=== PATIENT | male | born 1990 | race Caucasian/White ===

== ENCOUNTER 2023-03-29 09:47 | Emergency (ER) | payer BC ==
[~2023-03-29] VITALS: Ht 180.3 cm; Wt 79.4 kg
[2023-03-29 10:03] VITALS: BP 151/84
== END 2023-03-29 11:11 | disposition home or self-care (01) ==
LOC: ER 09:47
DX: T15.92XA Foreign body on external eye, part unspecified, left eye, initial encounter (principal); Z88.1 Allergy status to other antibiotic agents; X58.XXXA Exposure to other specified factors, initial encounter; Y92.89 Other specified places as the place of occurrence of the external cause; Y99.0 Civilian activity done for income or pay
CPT/HCPCS: 99282; A9270